=== PATIENT | female | born 1960 | race Caucasian/White ===

== ENCOUNTER 2019-12-08 17:20 | Emergency (ER) | payer MEDICAID ==
[~2019-12-08] VITALS: Ht 157.5 cm; Wt 54.4 kg
[2019-12-08 17:29] VITALS: BP 164/85
--- NOTE | 2019-12-08 20:20 | NUR ---
PT WAS CALLED FROM [facility], NO ANSWER, LWBS
--- NOTE | 2019-12-08 20:20 | NUR ---
PATIENT LEFT WITHOUT BEING SEEN BY DR. BARRETT. NO FURTHER CARE PROVIDED FOR PATIENT.
[2019-12-08 20:21] VITALS: BP 164/85
--- NOTE | 2019-12-08 20:22 | NUR ---
PT CALLED FROM [facility], NO ANSWER, LWBS
== END 2019-12-08 20:20 | disposition left against medical advice (07) ==
LOC: MED 17:20
DX: M54.5 Low back pain (principal); Z53.21 Procedure and treatment not carried out due to patient leaving prior to being seen by health care provider

== ENCOUNTER 2022-10-26 00:28 | Emergency (ER) | payer MEDICAID ==
[~2022-10-26] VITALS: Ht 157.5 cm; Wt 47.6 kg
--- NOTE | 2022-10-26 00:36 | NUR ---
PT [facility] BED 1
[2022-10-26 00:38] VITALS: BP 181/114
--- NOTE | 2022-10-26 00:47 | NUR ---
Patient is resting in bed, on monitor, A/Ox4, chest rise and fall symmetrical, no c/o pain or s/s of distress.
--- NOTE | 2022-10-26 00:50 | NUR ---
Patient refusing IV.
--- NOTE | 2022-10-26 02:20 | NUR ---
Patient is resting in bed, on monitor, A/Ox4, chest rise and fall symmetrical, no c/o pain or s/s of distress.
--- NOTE | 2022-10-26 03:46 | NUR ---
Patient is resting in bed, on monitor, A/Ox4, chest rise and fall symmetrical, no c/o pain or s/s of distress.
[2022-10-26] MEDS ORDERED: NALO4SPR NS (03:48)
[2022-10-26 03:55] VITALS: BP 158/97
--- NOTE | 2022-10-26 03:55 | NUR ---
Patient given written and verbal discharge instructions and verbalizes understanding. Given copies of tests performed during visit. Patient is awake, alert and oriented. Ambulatory with steady gait. Refuses offer of [facility]ci placement. Given list of available shelters in surrounding areas.
--- NOTE | 2022-10-26 04:17 | NUR ---
Note allison in EDM - 10/26/22 at 0417 by [id number] Patient given written and verbal discharge instructions and verbalizes understanding. Given copies of tests performed during visit. Patient is awake, alert and oriented. Ambulatory with steady gait. Refuses offer of alf placement. Given list of available shelters in surrounding areas.
--- NOTE | 2022-10-26 04:44 | NUR ---
Curtain Worker informed that patient is requesting Uber to [address], [place], [address]. Curtain Worker verbalized understanding. Patient waiting in lobby, A/Ox4, chest rise and fall symmetrical, no c/o pain or s/s of distress. Patient given food and clothing i weather appropriate.
--- NOTE | 2022-10-26 05:56 | NUR ---
Patient left off premesis, in [employer] paid for by hospital, with all of her belongings accounted for. 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 Patient left with weather appropriate clothing and patient given food during stay and patinet used toilet. Patient has no c/o pain or s/s of distress.
== END 2022-10-26 03:53 | disposition home or self-care (01) ==
LOC: MED 00:28
DX: T40.1X4A Poisoning by heroin, undetermined, initial encounter (principal); Z79.899 Other long term (current) drug therapy; Y92.89 Other specified places as the place of occurrence of the external cause
CPT/HCPCS: 99283